=== PATIENT | female | born 1985 | race Caucasian/White ===

== ENCOUNTER 2019-10-11 14:27 | Outpatient (RCR) | payer BC, SELFPAY ==
[2019-09-26 11:18] VITALS: BP 104/66; PULSE 77
[2019-10-05 10:44] VITALS: BP 106/61; PULSE 80
--- NOTE | ~2019-10-11 | US_ITS ---
EXAMINATION: US OB follow up w BPP DATE: 10/11/2019 16:50 INDICATION: Decelerations. Third trimester. TECHNIQUE: Real-time pelvic ultrasound was performed. COMPARISON: Ultrasound 03/30/2019, 03/18/2019 FINDINGS: There is a single living fetus in vertex presentation. The placenta is fundal. heart rate is 1 26 beats per minute (bpm). The amniotic fluid index is 15.4 cm, which is normal. The following biometric data were obtained: Biparietal diameter (BPD): 9.0 cm; head circumference (HC): 31.8 cm; abdominal circumference (AC): 34 .1 cm; femur length (FL): 7.2 cm. These measurements are concordant. Estimated weight is 3170 g +/- 476 g, which correlates with 74th percentile when 11/04/19 is used as estimated date of delivery. As single measurements, these parameters are each equal to the following estimated gestational ages w ith ranges of +/- 2 standard deviations: BPD: 36 weeks 3 days. HC: 35 weeks 5 days. AC: 38 weeks 0 days. FL: 36 weeks 6 days. estimated gestational age based solely on measurements from this exam is 36 weeks 5 days +/- 2 weeks 4 days. Biophysical profile performed by the technologist: breathing (30 sec sustained breathing in 30 minutes): 2 out of 2 movement (3 gross body movements in 30 minutes): 2 out of 2 tone (one episode of hilzmkb-sqynnhcdy-couacyn limb movement): 2 out of 2 Amniotic fluid pocket (2 cm): 2 out of 2 Total score: 8 out of 8 IMPRESSION: 1. Single living fetus in vertex presentation. 2. Estimated weight is 3170 g +/- 476 g, which correlates with 74th percentile when 11/04/19 is used as estimated date of delivery. Note that estimated date of delivery based on the ultrasound from 03/18/2019 would be 11/05/2019. 3. Biophysical profile 8 out of 8. Reviewed, dictated and finalized at location A. IMPRESSION: 1. Single living fetus in vertex presentation. 2. Estimated weight is 3170 g +/- 476 g, which correlates with 74th perc entile when 11/04/19 is used as estimated date of delivery. Note that estimated d ate of delivery based on the ultrasound from 03/18/2019 would be 11/05/2019. 3. Biophysical profile 8 out of 8.
--- NOTE | 2019-10-11 16:10 | PC.NURSE ---
Dr Stone notified of variable decels and prolong time to get reactive tracing. Orders for US, BPP, Growth and ADALGISA.
[2019-10-11 17:18] VITALS: BP 114/70; PULSE 72
== END 2019-10-16 07:52 | disposition home or self-care (01) ==
LOC: ANHOBOP 14:27
PROVIDERS: PCP Internal Medicine; Visit Provider Obstetrics & Gynecology
DX: O09.513 Supervision of elderly primigravida, third trimester (principal); Z3A.34 34 weeks gestation of pregnancy; Z3A.35 35 weeks gestation of pregnancy; Z3A.36 36 weeks gestation of pregnancy
CPT/HCPCS: 59025; 76816; 76819

== ENCOUNTER 2019-10-12 11:26 | Outpatient (CLI) | payer BC, SELFPAY ==
[2019-10-12 11:50] LABS: Basophils Percent Auto 0.5 % (0.2-1.2); Eosinophils Percent Auto 0.5 % (0-4.4); Hematocrit 37.9 % (37.0-47.0); Hemoglobin 13.2 g/dL (12.0-15.0); Immature Granulocyte Absolute 0.04 K/mm3 (0.00-0.031); Immature Granulocyte Percent A 0.5 % (0-0.5); Lymphocytes Absolute Auto 1.65 K/mm3 (0.9-3.2); Mean Corpuscular HGB Conc 34.8 g/dl (32-36); Mean Corpuscular Volume 94.8 fl (80-100); Mean Platelet Volume 12.1 fl (7.4-10.4); Monocytes Absolute Auto 0.6 K/mm3 (0.1-0.6); Monocytes Percent Auto 7.3 % (2.6-8.5); Neutrophils Absolute Auto 5.2 K/mm3 (1.3-6.7); Neutrophils Percent Auto 69.2 % (45.5-73.1); Platelet Count Result 139 k/mm3 (150-375); White Blood Count 7.5 K/mm3 (4.5-10.0)
[2019-10-14 07:41] LABS: Rapid Plasma Reagin Non-Reactive (NonReactive)
== END 2019-10-12 11:27 | disposition home or self-care (01) ==
PROVIDERS: PCP Internal Medicine; Visit Provider Obstetrics & Gynecology
DX: O09.893 Supervision of other high risk pregnancies, third trimester (principal); Z3A.00 Weeks of gestation of pregnancy not specified
CPT/HCPCS: 36415; 85025; 86592

== ENCOUNTER 2019-10-15 01:20 | Observation (INO) | payer BC, SELFPAY ==
[2019-10-15] VITALS (48 sets, daily range): PULSE 57–112; O2SAT 93–100; BMI 28.8
--- NOTE | ~2019-10-15 | US_ITS ---
EXAMINATION: US OB limited w BPP DATE: 10/15/2019 07:40 INDICATION: well-being. Third trimester. TECHNIQUE: Real-time pelvic ultrasound was performed. COMPARISON: Ultrasound 10/11/2019, 03/30/2019, 03/18/2019 FINDINGS: There is a single living fetus in vertex presentation. The placenta is fundal. heart rate is 1 23 beats per minute (bpm). Biophysical profile performed by the technologist: breathing (30 sec sustained breathing in 30 minutes): 2 out of 2 movement (3 gross body movements in 30 minutes): 2 out of 2 tone (one episode of fzzxqar-nmfdwrcag-sgqqkeh limb movement): 2 out of 2 Amniotic fluid pocket (2 cm): 2 out of 2 Total score: 8 out of 8 IMPRESSION: 1. Single living fetus in vertex presentation. 2. Biophysical profile 8 out of 8. Reviewed, dictated and finalized at location A.
--- NOTE | 2019-10-30 09:54 | PM.OBTRLD ---
OB - Triage/Final Diagnosis Final Diagnosis (1) Uterine contractions at greater than 20 weeks of gestation: Status: Acute
== END 2019-10-15 08:15 | disposition home or self-care (01) ==
PROVIDERS: Admitting Provider Student in an Organized Health Care Education/Training Program; PCP Internal Medicine; Visit Provider Student in an Organized Health Care Education/Training Program
DX: O60.03 Preterm labor without delivery, third trimester (principal); Z3A.37 37 weeks gestation of pregnancy
CPT/HCPCS: 76815; 76819; G0378; G0379

== ENCOUNTER 2019-10-15 10:30 | Inpatient (IN) | payer BC, SELFPAY ==
[2019-10-15] VITALS (100 sets, daily range): BP systolic 62–115; BP diastolic 28–72; PULSE 52–162; RESP 16; TEMP 36.6–37.2; O2SAT 76–100; BMI 28.0
--- NOTE | 2019-10-15 10:53 | LDADM ---
This patient, Jaiden Christianson, was admitted to Labor/Delivery/Recovery 102 on 10/15/19 at 10:31. Plans for labor, pain management and were discussed with patient. Patient/family oriented to hospital policies and general routines including ID bracelet, bed and alarms, visiting hours, pain management, procedures, bathroom and other care routines, personal items, smoking policy, room service/diet and guest tray routines, security routines, and visiting hours. Patient/Family are encouraged to report perceived risks to care and to ask questions if they do not understand what they are told or what they should do. See OBIX for further documentation.
[2019-10-15] MEDS: hydrOXYzine HCl 50 MG/ML VIAL 25 MG IM (11:20)
[2019-10-15] MEDS: LACTATED RINGERS 1,000 ML 125 ML IV CONT ×3 (13:15→17:13)
[2019-10-15] MEDS: AMPICILLIN 2 GM/NS 100 ML 2 GM/100 ML BAG IVPB (13:28)
[2019-10-15 13:30] LABS: Basophils Percent Auto 0.3 % (0.2-1.2); Eosinophils Percent Auto 0.2 % (0-4.4); Hematocrit 40.2 % (37.0-47.0); Immature Granulocyte Absolute 0.05 K/mm3 (0.00-0.031); Immature Granulocyte Percent A 0.5 % (0-0.5); Lymphocytes Absolute Auto 1.62 K/mm3 (0.9-3.2); Mean Corpuscular HGB Conc 34.8 g/dl (32-36); Mean Corpuscular Hemoglobin 32.4 pg (26-34); Mean Corpuscular Volume 93.1 fl (80-100); Mean Platelet Volume 11.7 fl (7.4-10.4); Monocytes Absolute Auto 0.6 K/mm3 (0.1-0.6); Monocytes Percent Auto 5.2 % (2.6-8.5); Neutrophils Absolute Auto 8.5 K/mm3 (1.3-6.7); Neutrophils Percent Auto 78.8 % (45.5-73.1); Platelet Count Result 139 k/mm3 (150-375); Red Blood Count 4.32 M/mm3 (4.2-5.4); Red Cell Distribution Width 14.1 % (11.5-14.5); White Blood Count 10.8 K/mm3 (4.5-10.0)
[2019-10-15] MEDS: ONDANSETRON INJ 4 MG/2 ML VIAL IV PUSH (13:37)
--- NOTE | 2019-10-15 13:44 | WPDANESEPP ---
Anes - Eval Pre Procedure Procedure: labor epidural Date/Time: 10/15/19 13:44 Surgeon: sophia Pre Op Diagnosis: contractions Patient Data Age: 34 Gender: F Height: 1.63 m Weight: 74 kg Last Vital Signs Pulse 67 10/15/19 11:15 BP 90/49 L 10/15/19 11:15 Allergies Allergy/AdvReac Type Severity Reaction Status Date / Time No Known Allergies Allergy Verified 10/15/19 10:08 Home Medications Medication Instructions Recorded Confirmed Type vits 75-iron 28 mg-folic 1 pkg PO DAILY 03/13/19 10/15/19 History acid 800 mcg-omega-3 oral combo pack valacyclovir 1 gram tablet 1,000 mg PO DAILY 03/13/19 10/15/19 History Janel-[place] Heartburn 2 tablet PO Q8H PRN 09/26/19 10/15/19 History Laboratory Tests 10/15/19 10/15/19 13:12 13:12 WBC 10.8 K/mm3 H K/mm3 (4.5-10.0) RBC 4.32 M/mm3 M/mm3 (4.2-5.4) Hgb 14.0 g/dL g/dL (12.0-15.0) Hct 40.2 % % (37.0-47.0) MCV 93.1 fl fl (80-100) MCH 32.4 pg pg (26-34) MCHC 34.8 g/dl g/dl (32-36) RDW 14.1 % % (11.5-14.5) Plt Count 139 k/mm3 L k/mm3 (150-375) MPV 11.7 fl H fl (7.4-10.4) Immature Gran % (Auto) 0.5 % % (0-0.5) Neut % (Auto) 78.8 % H % (45.5-73.1) Lymph % (Auto) 15.0 % L % (18.3-44.2) [place] % (Auto) 5.2 % % (2.6-8.5) Eos % (Auto) 0.2 % % (0-4.4) Baso % (Auto) 0.3 % % (0.2-1.2) Lymph # (Auto) 1.62 K/mm3 K/mm3 (0.9-3.2) [place] # (Auto) 0.6 K/mm3 K/mm3 (0.1-0.6) Eos # (Auto) 0.0 K/mm3 K/mm3 (0-0.3) Baso # (Auto) 0.0 K/mm3 K/mm3 (0.0-0.1) Abs Immat Gran (auto) 0.05 K/mm3 H K/mm3 (0.00-0.031) Absolute Neuts (auto) 8.5 K/mm3 H K/mm3 (1.3-6.7) Absolute Nucleated RBC 0.0 K/mm3 K/mm3 (0.0-0.012) Nucleated RBC % 0.0 % % (0.0-0.2) RPR Pending Patient hx anesthesia problems: none Family hx anesthesia problems: none PMFSH Social History Social History Smoking status: Never smoker Alcohol intake: current Substance use: never Gender identity (if verbalized by the patient): Female Spiritual care concerns: No Exam Day of Procedure 10/15/19 13:44
[2019-10-15] MEDS: PHENYLEPHRINE 1,000 MCG/10 ML SYRINGE 100 MCG IV PUSH (14:08)
--- NOTE | 2019-10-15 16:44 | WPDANESEPP ---
Anes - Eval Pre Procedure Procedure: Labor epidural Date/Time: 10/15/19 16:44 Surgeon: Andie Preop Diagnosis: Abd pain with contractions Pre Op Diagnosis: contractions Patient Data Age: 34 Gender: F Height: 5 ft 4 in Weight: 74 kg Last Vital Signs Temp 99 F 10/15/19 16:37 Pulse 61 10/15/19 16:40 BP 104/59 L 10/15/19 16:40 Pulse Ox 99 10/15/19 16:40 Allergies Allergy/AdvReac Type Severity Reaction Status Date / Time No Known Allergies Allergy Verified 10/15/19 10:08 Home Medications Medication Instructions Recorded Confirmed Type vits 75-iron 28 mg-folic 1 pkg PO DAILY 03/13/19 10/15/19 History acid 800 mcg-omega-3 oral combo pack valacyclovir 1 gram tablet 1,000 mg PO DAILY 03/13/19 10/15/19 History Janel-[place] Heartburn 2 tablet PO Q8H PRN 09/26/19 10/15/19 History Laboratory Tests 10/15/19 10/15/19 10/15/19 13:12 13:12 13:12 WBC 10.8 K/mm3 H K/mm3 (4.5-10.0) RBC 4.32 M/mm3 M/mm3 (4.2-5.4) Hgb 14.0 g/dL g/dL (12.0-15.0) Hct 40.2 % % (37.0-47.0) MCV 93.1 fl fl (80-100) MCH 32.4 pg pg (26-34) MCHC 34.8 g/dl g/dl (32-36) RDW 14.1 % % (11.5-14.5) Plt Count 139 k/mm3 L k/mm3 (150-375) MPV 11.7 fl H fl (7.4-10.4) Immature Gran % (Auto) 0.5 % % (0-0.5) Neut % (Auto) 78.8 % H % (45.5-73.1) Lymph % (Auto) 15.0 % L % (18.3-44.2) [place] % (Auto) 5.2 % % (2.6-8.5) Eos % (Auto) 0.2 % % (0-4.4) Baso % (Auto) 0.3 % % (0.2-1.2) Lymph # (Auto) 1.62 K/mm3 K/mm3 (0.9-3.2) [place] # (Auto) 0.6 K/mm3 K/mm3 (0.1-0.6) Eos # (Auto) 0.0 K/mm3 K/mm3 (0-0.3) Baso # (Auto) 0.0 K/mm3 K/mm3 (0.0-0.1) Abs Immat Gran (auto) 0.05 K/mm3 H K/mm3 (0.00-0.031) Absolute Neuts (auto) 8.5 K/mm3 H K/mm3 (1.3-6.7) Absolute Nucleated RBC 0.0 K/mm3 K/mm3 (0.0-0.012) Nucleated RBC % 0.0 % % (0.0-0.2) RPR Pending Hep Bs Antigen HIV 1&2 Ab/P24 Ag 4thGn Rubella IgG Antibody Blood Type A Positive Antibody Screen Negative 10/15/19 16:25 WBC RBC Hgb Hct MCV MCH MCHC RDW Plt Count MPV Immature Gran % (Auto) Neut % (Auto) Lymph % (Auto) [place] % (Auto) Eos % (Auto) Baso % (Auto) Lymph # (Auto) [place] # (Auto) Eos # (Auto) Baso # (Auto) Abs Immat Gran (auto) Absolute Neuts (auto) Absolute Nucleated RBC Nucleated RBC % RPR Hep Bs Antigen Pending HIV 1&2 Ab/P24 Ag 4thGn Pending Rubella IgG Antibody Pending Blood Type Antibody Screen Patient hx anesthesia problems: none Family hx anesthesia problems: none PMFSH Past Medical History Medical History Breech presentat-unspec Encounter for confirmation of test result with physical examination HSV (herpes simplex virus) anogenital infection Supervision of other high risk pregnancies, second trimester Surgical History Surgical History (Updated 10/15/19 @ 16:46 by Ruddy Love CRNA) Previous section Family History Family History Grandparent Carcinoma of colon Other Family history of malignant neoplasm of breast Social History Social History Smoking status: Never smoker Second hand tobacco smoke exposure: No Alcohol intake: current Substance use: never Gender identity (if verbalized by the patient): Female Spiritual care concerns: No Exam Day of Procedure 10/15/19 16:44 Patient weight: normal Neurological: alert
[2019-10-15] MEDS: AMPICILLIN 1 GM/NS 50 ML 1 GM/50 ML BAG IVPB (17:13)
[2019-10-15 17:29] LABS: HIV 1/2 Ab P24 Ag Result Negative (Negative)
[2019-10-15 17:37] LABS: Hepatitis B Surface Antigen Negative (Negative); Rubella IgG Antibody 8.9 IU/ML
[2019-10-15] MEDS: OXYTOCIN 30 UNITS/NS 500 ML 30 UNITS/500 ML BAG 999 UNITS IV CONT (18:09)
--- NOTE | 2019-10-15 18:23 | PM.OBPRVD ---
OB - Delivery Note Procedure Delivery date: 10/15/19 Procedure: successfull vaginal after Intrapartal events: None Induction method: none Delivery monitor: external FHT Route of delivery: Laceration description: None Specimen: No Estimated blood loss (mL): 150 Anesthesia type: Epidural Disposition: other ( floor) Complications: none Narrative: Patient was sent to Labor and delivery after she was noted to have cervical change from her prior exam that morning on Labor and delivery. Her cervix in the office was 3 cm 70% -2. she was started on ampicillin for unknown GBS status she did have a GBS done at 36 weeks but the results were not back. Her course significant for having second-trimester bleeding and a subchorionic hemorrhage which did resolve in the 2nd trimester. She has a history of HSV on the buttocks area and she has been on suppression Valtrex. She has not had any lesions During the . course also significant for having a prior section for breech presentation and patient desired trial of labor. The last ultrasound she had the fetus was in the cephalic presentation. She denies any prodromal of symptoms. She then had spontaneous rupture of membranes at approximately 12:15 p.m.. at that time she was 5 cm dilated. She progressed to complete. She pushed 3 times and delivered a male infant over an intact perineum. Infant was vigorously crying upon delivery and placed on maternal abdomen. Delayed cord clamping for 40 seconds. And the cord was clamped after 40 seconds. Cord blood for gases was obtained and cord blood was obtained. The placenta delivered spontaneously and intact. The lower uterine segment was palpated and felt to be intact. The uterine tone was good. EBL 150 cc. The patient tolerated procedure well. [place] Baby Date of : 10/15/19 Weeks of gestation at delivery: 37 Infant gender: Male Weight (pounds): 7 Weight (ounces): 1 presentation: vertex position: Right Occiput Anterior Placenta delivery description: Spontaneous cord vessel description: 3 Vessels score one minute: 9 score five minutes: 9
--- NOTE | 2019-10-15 18:31 | PM.IMHP ---
H&P: HPI History of Present Illness Chief complaint: contractions Narrative: Jaiden Christianson is a 34 year old female at 37 2/7 weeks by LMP with an EDC. Consistent with first trimester ultrasound. Patient was sent to Labor and delivery after she was noted to have cervical change from her prior exam that morning on Labor and delivery. Her cervix in the office was 3 cm 70% -2. She was started on ampicillin for unknown GBS status she did have a GBS done at 36 weeks but the results were not back. Her course significant for elderly multigravida- normal Materna 21, having second-trimester bleeding and a subchorionic hemorrhage which did resolve in the 2nd trimester. She has a history of HSV on the buttocks area and she has been on suppression Valtrex. She has not had any lesions during the . course also significant for having a prior section for breech presentation and patient desired trial of labor. The last ultrasound she had the fetus was in the cephalic presentation. She denies any prodromal of symptoms. OB labs A+ ab-neg, plt 236 HIV neg, RPR NR, HBSag neg, HepCab-neg, Rub-Im, Varicella im, Urine culture neg, Vit D 31, GC/CHL _/_, Pap normal in 05/20. Hemoglobin electrophoresis nl. TSH normal. Materna 21 normal. Normal survey. One hour 65, CBC-. Third trimester H/H- , RPR NR. GBS pending. Review of Systems Review of Systems: All systems reviewed & are unremarkable except as noted in HPI and below Constitutional: Constitutional: Reports no additional constitutional complaints and Denies headache(s) Eyes: Eyes: Denies spots in vision ENT: Reports system reviewed and no additional complaints, except as documented and Denies headache(s) Cardiovascular: Cardiovascular: Denies chest pain and Denies dyspnea Respiratory: Respiratory: Denies dyspnea Gastrointestinal: Gastrointestinal: Reports no additional gastrointestinal complaints Genitourinary: Genitourinary: Reports amenorrhea Musculoskeletal: Musculoskeletal: Reports no additional musculoskeletal complaints Integumentary/Breasts: Skin/Breast: Denies breast mass and Denies rash Neurologic: Denies headache(s) Psychiatric: Psychiatric: Reports no additional psychiatric complaints PMFSH Past Medical History Medical History Breech presentat-unspec Encounter for confirmation of test result with physical examination HSV (herpes simplex virus) anogenital infection Supervision of other high risk pregnancies, second trimester Surgical History Surgical History Previous section Family History Family History Grandparent Carcinoma of colon Other Family history of malignant neoplasm of breast Social History Social History Smoking status: Never smoker Second hand tobacco smoke exposure: No Alcohol intake: current Substance use: never Gender identity (if verbalized by the patient): Female Sexual Orientation (if Verbalized by the Patient): Straight or Heterosexual Spiritual care concerns: No Meds Home Medications and Allergies Home Medications Medication Instructions Recorded Confirmed Type valacyclovir 1 gram tablet 1,000 mg PO DAILY 03/13/19 10/15/19 History Janel-[place] Heartburn 2 tablet PO Q8H PRN 09/26/19 10/15/19 History ibuprofen 600 mg PO Q6H PRN tablet 10/17/19 Rx lanolin [Dwo-K-Monnbm] 1 applic TOPICAL PRN PRN g 10/17/19 Rx prenat.vits,cathy,mfo-ipes-wlsrt 1 tab PO DAILY tablet 10/17/19 Rx [KPN] simethicone 80 mg PO Q2H PRN tablet 10/17/19 Rx witch shadi [Preparation H (Witch 1 pad TOPICAL PRN PRN ea 10/17/19 Rx Shadi)] Allergies Allergy/AdvReac Type Severity Reaction Status Date / Time No Known Allergies Allergy Verified 10/15/19 10:08
[2019-10-15] MEDS: OXYTOCIN 30 UNITS/NS 500 ML 30 UNITS/500 ML BAG 125 UNITS IV CONT (18:52)
[2019-10-15] MEDS: IBUPROFEN 600 MG TABLET PO (19:21)
[2019-10-15] MEDS: BENZOCAINE 20% AER SPR (*SP) 56 GM CAN 1 SPRAY TOPICAL (20:06)
[2019-10-15] MEDS: LANOLIN (LANSINOH) 7.5 GM CREAM 1 APPLIC TOPICAL (20:06)
[2019-10-15] MEDS: WITCH HAZEL 40 PADS 1 PAD TOPICAL (20:06)
--- NOTE | 2019-10-15 20:33 | PC.NURSE ---
This patient, Jaiden Christianson, was received from Labor and Delivery on 10/15/19 at 2033. Personal belongings list checked and signed. Patient/family oriented to unit policies and routines
[2019-10-16] MEDS: ACETAMINOPHEN 325 MG TABLET 650 MG PO ×2 (03:48→22:33)
[2019-10-16] MEDS: IBUPROFEN 600 MG TABLET PO ×3 (03:49→16:33)
[2019-10-16 05:34] LABS: Hematocrit 34.8 % (37.0-47.0); Hemoglobin 11.8 g/dL (12.0-15.0)
[2019-10-16 08:10] VITALS: BP 94/42; PULSE 51; RESP 18; TEMP 36.4; O2SAT 96
[2019-10-16 08:48] LABS: Rapid Plasma Reagin Non-Reactive (NonReactive)
--- NOTE | 2019-10-16 09:34 | P.PNOB_ITS ---
OB - PN: Subj Subjective Date/time seen: 10/16/19 09:34 Doing well. Denies significant pain, well controlled with medication. Minimal lochia. Ambulating well. Voiding well. Baby well. OB - PN: Obj Data Labs CBC & Chem 7: 10/16/19 03:55 Labs: Laboratory Results - last 24 hr 10/15/19 10/15/19 10/15/19 13:12 13:12 13:12 WBC 10.8 H RBC 4.32 Hgb 14.0 Hct 40.2 MCV 93.1 MCH 32.4 MCHC 34.8 RDW 14.1 Plt Count 139 L MPV 11.7 H Immature Gran % (Auto) 0.5 Neut % (Auto) 78.8 H Lymph % (Auto) 15.0 L [place] % (Auto) 5.2 Eos % (Auto) 0.2 Baso % (Auto) 0.3 Lymph # (Auto) 1.62 [place] # (Auto) 0.6 Eos # (Auto) 0.0 Baso # (Auto) 0.0 Abs Immat Gran (auto) 0.05 H Absolute Neuts (auto) 8.5 H Absolute Nucleated RBC 0.0 Nucleated RBC % 0.0 RPR Non-reactive Hep Bs Antigen HIV 1&2 Ab/P24 Ag 4thGn Rubella IgG Antibody Blood Type A Positive Antibody Screen Negative 10/15/19 10/16/19 16:25 03:55 WBC RBC Hgb 11.8 L Hct 34.8 L MCV MCH MCHC RDW Plt Count MPV Immature Gran % (Auto) Neut % (Auto) Lymph % (Auto) [place] % (Auto) Eos % (Auto) Baso % (Auto) Lymph # (Auto) [place] # (Auto) Eos # (Auto) Baso # (Auto) Abs Immat Gran (auto) Absolute Neuts (auto) Absolute Nucleated RBC Nucleated RBC % RPR Hep Bs Antigen Negative HIV 1&2 Ab/P24 Ag 4thGn Negative Rubella IgG Antibody 8.9 L Blood Type Antibody Screen OB - PN A/P Assessment and Plan (1) , delivered: Code(s): O34.219 - Maternal care for unspecified type scar from previous delivery Status: Acute Assessment and Plan: doing well continue routine care anticipate dc home tomorrow Time Spent With Patient Time: Total time spent is greater than 50% in coordination of care (as documented) at patient's floor/unit and/or counseling patient: Exam Const: General: comfortable and no acute distress GI: GI Palp: Yes Soft to palpation and No Tenderness to palpation present (GI) Other: fundus beneath umbilicus Extrem: Right lower extremity: no edema Left lower extremity: no edema Other: no calf tenderness
--- NOTE | 2019-10-16 09:35 | WPDANLDPN2 ---
Anes-Prog Note L&D Date/Time: 10/16/19 09:35 Comfortable throughout: labor and delivery Neuraxial method: epidural Epidural/Spinal procedure site: clean & non-tender Neuro status: Neuro function grossly intact. Cardiovascular status: normal Respiratory status: normal Airway patency: baseline Mental status: baseline Post-Op hydration status: normal Vital Signs: Last Vital Signs Temp 36.8 C 10/15/19 20:00 Pulse 58 L 10/15/19 20:01 Resp 16 10/15/19 20:00 BP 107/68 10/15/19 20:01 Pulse Ox 96 10/15/19 20:00 I/O: Intake & Output 10/15/19 10/16/19 10/16/19 23:59 07:59 15:59 Intake Total 2250 Output Total 248 Balance 2002 Post-procedural complaints: none Patient feedback: Patient satisfied with anesthetic care.
[2019-10-16] MEDS: MULTIVIT/MIN/PREN/FOL AC/IRON TABLET 1 TAB PO (10:08)
[2019-10-16] MEDS: POLYSACCHARIDE IRON COMPLEX 150 MG CAPSULE PO (10:09)
[2019-10-16 19:46] VITALS: BP 100/65; PULSE 54; RESP 16; TEMP 36.5; O2SAT 98
[2019-10-17] MEDS: IBUPROFEN 600 MG TABLET PO (06:55)
[2019-10-17] MEDS: DOCUSATE SODIUM 100 MG CAPSULE PO (06:55)
[2019-10-17] MEDS: LANOLIN (LANSINOH) 7.5 GM CREAM 1 APPLIC TOPICAL (06:56)
[2019-10-17] MEDS: MULTIVIT/MIN/PREN/FOL AC/IRON TABLET 1 TAB PO (06:56)
[2019-10-17] MEDS: WITCH HAZEL 40 PADS 1 PAD TOPICAL (06:57)
[2019-10-17 07:10] VITALS: BP 104/46; PULSE 53; RESP 18; TEMP 36.6
--- NOTE | 2019-10-17 07:59 | PM.OBPNVD ---
OB - PN: Subj Subjective Date/time seen: 10/17/19 07:59 Patient comments: pain well controlled, tolerating diet and other (Decreasing lochia.) baby status: doing well and nursing well [place] feeding status: exclusively breast feeding OB - PN: Obj Data Labs CBC & Chem 7: 10/16/19 03:55 Labs: Laboratory Results - last 24 hr 10/15/19 13:12 RPR Non-reactive OB - PN A/P Plan day: 2 Plan: discharge home and other Comments: Patient doing well. Follow up 4-6 weeks. Discharge instructions provided. Time Spent With Patient Time: Total time spent is greater than 50% in coordination of care (as documented) at patient's floor/unit and/or counseling patient: Time with patient: less than 15 minutes Exam Psych: Affect: normal affect Other: Abd: fundus firm below umbilicus, nontender Perineum: normal Ext: nontender
--- NOTE | 2019-10-17 07:59 | PM.OBDSVD ---
DS: Admitting Diagnosis Admitting Diagnosis Admitting Diagnosis: Active labor DS: Discharge Diagnosis Discharge Diagnosis (1) , delivered: Code(s): O34.219 - Maternal care for unspecified type scar from previous delivery Status: Acute OB - DS: Summary OB Procedures : NST and Ultrasound OB Procedures Intrapartum: OB Procedures: : None Time Spent with Patient Time attestation: Total time spent providing and/or coordinating discharge services: Exam Psych: Affect: normal affect Other: Abd: fundus firm below umbilicus, nontender Perineum: normal Ext: nontender DS: Data Data Completed and Pending Pending studies at discharge: Pending at discharge 10/15/19 18:12 Surgical [PTH] Routine Labs on day of discharge: Labs from last 24 hours 10/15/19 13:12 RPR Non-reactive Discharge Plan Discharge Attending physician on discharge: Meng Chaves Discharging Clinician: Meng Chaves Anticipated Discharge Date/Time: 10/17/19 08:01 Patient Disposition: Home, Self-Care Activity: may shower, as tolerated and pelvic rest Diet: regular Patient Instructions: Antibiotic Form Stand Alone Forms: General Discharge Information Follow-up/Referrals: Meng Chaves MD [Physician] - 4 Weeks Discharge Medications: No Action One A Day Women's DHA 28 mg iron- 800 mcg combo pack 1 pkg PO DAILY RF: 0 valacyclovir 1 gram tablet 1,000 mg PO DAILY RF: 0 Janel-[place] Heartburn 1,940-1,000 mg Tablet, Effervescent 2 tablet PO Q8H PRN (Reason: Heartburn) RF: 0 Date of admission: 10/15/19 10:31 Primary Care Provider: Dong Lucero Admitting Provider: Meng Chaves Attending physician on admission: Meng Chaves
--- NOTE | 2019-10-17 09:30 | PC.NURSE ---
Mother is able to independently latch infant with appropriate positioning/alignment. She denies any nipple discomfort, is feeding as required and waking to feed if needed. has had 8 effective feedings in the past 24 hours, and is currently meeting outcomes for weight, output, jaundice and feeding frequencies. Mother states she feels confident to continue effective at home. Reviewed transition to breast milk, signs of adequate intake, and engorgement/relief. Instructed to call ICP if intake/output less than required. Reviewed regular medications mother is taking. Information provided per [place]. Reviewed community resources on the [facility] website and in the Mom/Baby guide. Information on outpatient services provided. Mother has no further questions at this time.
[2019-10-17] MEDS: MEASLES,MUMPS,RUBELLA VACCINE 0.5 ML VIAL SUB-Q (11:35)
[2019-10-18 11:01] VITALS: BP 99/66; PULSE 57; RESP 16; TEMP 37.3; O2SAT 98
== END 2019-10-17 11:48 | disposition home or self-care (01) | DRG 806 ==
LOC: ANHLDR 12:30 → ANHOB2 20:41
PROVIDERS: Admitting Provider Obstetrics & Gynecology; PCP Internal Medicine; Visit Provider Obstetrics & Gynecology
DX: O34.211 Maternal care for low transverse scar from previous cesarean delivery (principal); O98.52 Other viral diseases complicating childbirth; Z37.0 Single live birth; Z3A.37 37 weeks gestation of pregnancy; B00.9 Herpesviral infection, unspecified
CPT/HCPCS: 36415; 76815; 76819; 84112; 85014; 85018; 85025; 86592; 86703; 86762; 86850; 86900; 86901; 87340; 88307; 90710; A9270; G0378; G0379; G0432; J0290; J2370; J2405; J2590; J2795; J3410; J7120